=== PATIENT | female | born 1970 | race Caucasian/White ===

== ENCOUNTER → 2016-05-17 | Day surgery (SDC) | payer BC ==
[2016-05-16 11:30] VITALS: BMI 27.0
[~2016-05-17] VITALS: Ht 157.5 cm; Wt 68.2 kg
[~2016-05-17] MED LIST: ASPI81TA28 PO; ATOR10TA88 PO; CHOL1000 PO; CITA20TA4 PO; CLON1TAB3 PO; ENOX80IN SQ; HYDR-5688 PO; LIDOCAINE HCL 2% 2 ML VIAL (20MG/ML) ONE; ONDANSETRON INJ 2 MG/ML 2 ML VIAL IV PRN; PANT40TA PO; PROPOFOL IV EMULSION 10 MG/ML 20 ML VIAL IV ONE; ZNTT/150 PO
[2016-05-17 09:07] VITALS: Ht 157.5 cm; Wt 68.2 kg
[2016-05-17 09:26] VITALS: TEMP 36.7
--- NOTE | 2016-05-17 09:34 | GI REPORT ---
Procedure Date: 05/17/2016 9:07 AM Procedure: Upper GI endoscopy Indications: Acute post hemorrhagic anemia, Hematemesis, Nausea with vomiting Medicines: Monitored Anesthesia Care Complications: No immediate complications. Estimated blood loss: Minimal. Estimated Blood Loss: Estimated blood loss was minimal. Estimated blood loss: Minimal. Procedure: Pre-Anesthesia Assessment: - Prior to the procedure, a History and Physical was performed, and patient medications, allergies and sensitivities were reviewed. The patient's tolerance of previous anesthesia was reviewed. - The risks and benefits of the procedure and the sedation options and risks were discussed with the patient. All questions were answered and informed consent was obtained. - Patient identification and proposed procedure were verified prior to the procedure by the physician, the nurse and the marine insurance claim examiner. The procedure was verified in the procedure room. - Pre-procedure physical examination revealed no contraindications to sedation. - ASA Grade Assessment: III - A patient with severe systemic disease. - After reviewing the risks and benefits, the patient was deemed in satisfactory condition to undergo the procedure. - The anesthesia plan was to use monitored anesthesia care (MAC). - Immediately prior to administration of medications, the patient was re-assessed for adequacy to receive sedatives. - The heart rate, respiratory rate, oxygen saturations, blood pressure, adequacy of pulmonary ventilation, and response to care were monitored throughout the procedure. - The physical status of the patient was re-assessed after the procedure. After obtaining informed consent, the endoscope was passed under direct vision. Throughout the procedure, the patient's blood pressure, pulse, and oxygen saturations were monitored continuously. The On-site loaner was introduced through the mouth, and advanced to the third part of duodenum. The upper GI endoscopy was accomplished without difficulty. The patient tolerated the procedure well. Findings: No endoscopic abnormality was evident in the esophagus to explain the patient's complaint of dysphagia. It was decided, however, to proceed with dilation of the entire esophagus. A guidewire was placed and the scope was withdrawn. Dilation was performed with a Savary dilator with no resistance at 42 Fr, 45 Fr and 48 Fr. Estimated blood loss: none. The endoscope was then reinserted to evaluate the success of the procedure. The Z-line was regular and was found 35 cm from the incisors. Diffuse minimal inflammation characterized by granularity was found in the entire examined stomach. A scar was found in the gastric body. The scar tissue was healthy in appearance. The examined duodenum was normal. Impression: Normal esophagus Mild gastritis (not biopsied as patient on Lovenox) Recommendation: - Advance diet as tolerated today. - Observe patient's clinical course following today's procedure with therapeutic intervention. - Repeat the upper endoscopy PRN for retreatment. Le Nina D.O. Le Nina, DO 05/17/2016 9:33:53 AM This report has been signed electronically. Note Initiated On: 05/17/2016 9:07 AM I attest to the content of the Intraoperative Record and orders documented therein, exceptions below
--- NOTE | 2016-05-17 09:36 | Endo History and Physical ---
History & Physical Date of Service: May 17, 2016. Chief Complaint: DYSPHAGIA Referring Physician: DR. CHOI History of Present Illness Patient with a history of radiation therapy presenting for evaluation of dysphagia for 6 months (solids only). Past Surgical History Hx Cardiac Surgery: Yes (CARDIAC CATH) Hx Internal Defibrillator: No Hx Pacemaker: No Hx Abdominal Surgery: No Hx of Implantable Prosthesis: No Hx Post-Op Nausea and Vomiting: No Hx Cancer Surgery: No Hx Thoracic Surgery: No Hx Orthopedic: No Hx Urinary Tract Surgery: No Family History None Social History Smoking Status: Current Every Day Smoker Hx Substance Use: No Hx Alcohol Use: Yes Allergies Coded Allergies: No Known Allergies (Unverified , 05/17/16) Current Medications Reported Home Medications Medications Dose Route/Sig Max Daily Dose Days Date Category Dose Instructions Vitamin D3 (Cholecalciferol) 1,000 Unit Tab 1 Tab PO QAM 05/16/16 Reported [place] 5MG/325MG (Acetaminophen/Hydrocodone Bitart) Tab 1 Tablet PO Q4H PRN 05/16/16 Reported PRN PAIN Aspirin Ec (Aspirin) 81 Mg Tab 81 Mg PO QAM 05/16/16 Reported Klonopin (Clonazepam) 1 Mg Tab 1 Mg PO BID 05/16/16 Reported Protonix (Pantoprazole Sodium) 40 Mg Tab 40 Mg PO QAM 05/16/16 Reported Zantac (Ranitidine HCl) 150 Mg Tab 150 Mg PO QAM 05/16/16 Reported Citalopram Hydrobromide 20 Mg Tab 1 Tab PO QAM 05/16/16 Reported Lipitor (Atorvastatin Calcium) 10 Mg Tab 10 Mg PO QAM 05/16/16 Reported Lovenox (Enoxaparin Sodium) 80 Mg/0.8 Ml Inj 80 Mg SQ Q12H 05/16/16 Reported Vital Signs Weight (Kilograms): 68.18 Height (Feet): 5 Height (Inches): 2 Date Time Temp Pulse Resp B/P Pulse Ox O2 Delivery O2 Flow Rate FiO2 05/17/16 09:26 36.7 79 18 121/86 97 Room Air Physical Exam General Appearance: no apparent distress Respiratory/Chest: Auscultation: no wheezing, deminished air movement Cardiovascular: Heart Auscultation: RRR Abdomen: Inspection & Palpation: soft Assessment and Plan EGD for evaluation of dysphagia. Given history would wonder about a radiation induced stricture. We have discussed the risks to include bleeding, infection, perforation, pain, infection, and cardiopulmonary problems.
--- NOTE | 2016-05-17 09:59 | Discharge Instructions ---
Endoscopy Patient Instructions Date / Procedure(s) Performed May 17, 2016. EGD Allergy Information Coded Allergies: No Known Allergies (Unverified , 05/17/16) Discharge Date / Findings May 17, 2016. Mild gastritis No stricture or mass in the esophagus Medication Instructions Stopped Medication(s): PT. INSTRUCTED TO STOP TAKIN VITAMINS. Reported Home Medications Medications Dose Route/Sig Max Daily Dose Days Date Category Dose Instructions Vitamin D3 (Cholecalciferol) 1,000 Unit Tab 1 Tab PO QAM 05/16/16 Reported [place] 5MG/325MG (Acetaminophen/Hydrocodone Bitart) Tab 1 Tablet PO Q4H PRN 05/16/16 Reported PRN PAIN Aspirin Ec (Aspirin) 81 Mg Tab 81 Mg PO QAM 05/16/16 Reported Klonopin (Clonazepam) 1 Mg Tab 1 Mg PO BID 05/16/16 Reported Protonix (Pantoprazole Sodium) 40 Mg Tab 40 Mg PO QAM 05/16/16 Reported Zantac (Ranitidine HCl) 150 Mg Tab 150 Mg PO QAM 05/16/16 Reported Citalopram Hydrobromide 20 Mg Tab 1 Tab PO QAM 05/16/16 Reported Lipitor (Atorvastatin Calcium) 10 Mg Tab 10 Mg PO QAM 05/16/16 Reported Lovenox (Enoxaparin Sodium) 80 Mg/0.8 Ml Inj 80 Mg SQ Q12H 05/16/16 Reported Provider Instructions Activity Restrictions - No exercising or heavy lifting for 24 hours. - Do not drink alcohol the day of the procedure. - Do not drive a car or operate machinery until the day after the procedure. - Do not make any important decisions or sign important papers in 24 hours after the procedure. Following Day: - Return to full activity which may include returning to work/school. Diet Start your diet with liquids and light foods (jello, soup, juice, toast). Then eat your usual diet if not nauseated. Treatment For Common After Affects For mild abdominal pain, bloating, or excessive gas: - Rest - Eat lightly - Lie on right side Follow-Up Information Follow-up with DR. CHOI as scheduled Repeat upper endoscopy for further dilation if symptoms persist. Anesthesia Information What You Should Know You have had a procedure that required some medicine to reduce anxiety and discomfort. This treatment is called moderate sedation. After receiving the treatment, you may be sleepy, but you will be able to breathe on your own. The effects of the treatment may last for several hours. Follow these instructions along with Activity/Diet recommendations noted above: * Do NOT do anything where dizziness or clumsiness would be dangerous. * Rest quietly at home today, then you can be up and about tomorrow. * Have a responsible person stay with you the rest of today. * You may have had an I.V. today. If so, you may take the dressing off later today. Recommendations Call your doctor if: * Trouble breathing * Continuous vomiting for more than 24 hours * Temperature above 101 degrees * Severe abdominal pain or bloating * Pain not relieved by pain medicine ordered * There is increased drainage or redness from any incision * A large amount of rectal bleeding greater than 2-3 tablespoons. (If you had a polyp/s removed or have hemorrhoids, a small amount of blood - from the rectum is to be expected.) * You have any unanswered questions or concerns. IN THE EVENT OF A SERIOUS EMERGENCY, GO TO THE NEAREST EMERGENCY ROOM Your discharge instructions were prepared by provider Le Nina. Patient Instructions Signature Page Prisca Ricks Patient (or Guardian) Signature/Date: I have read and understand the instructions given to me by my caregivers. Caregiver/RN/Doctor Signature/Date: The above-named patient and/or guardian has received patient instructions on this date. + Original Patient Signature Page (only) stays with chart. Please make copy for patient.
[2016-05-17 10:15] VITALS: PULSE 75
[2016-05-17 10:38] VITALS: BP 127/79; O2SAT 96
--- NOTE | 2016-05-17 15:19 | Anesthesiology Progress Note ---
Anesthesia Post Op Note Date & Time May 17, 2016 at 15:19 Vital Signs Pain Intensity: 8 Vital Signs Past 12 Hours Date Time Temp Pulse Resp B/P Pulse Ox O2 Delivery O2 Flow Rate FiO2 05/17/16 10:38 20 127/79 96 Room Air 05/17/16 10:28 20 125/84 99 Room Air 05/17/16 10:15 75 20 109/74 97 Room Air 05/17/16 10:03 88 20 120/82 95 Room Air 05/17/16 09:26 36.7 79 18 121/86 97 Room Air Notes Mental Status: alert / awake / arousable, participated in evaluation Pt Amnestic to Procedure: Yes Nausea / Vomiting: adequately controlled Pain: adequately controlled Airway Patency, RR, SpO2: stable & adequate BP & HR: stable & adequate Hydration State: stable & adequate Anesthetic Complications: no major complications apparent
== END | disposition home or self-care (01) ==
LOC: C.GI 08:56 → MERGE 09:30
PROVIDERS: ATTEND Internal Medicine Gastroenterology
DX: R13.10 Dysphagia, unspecified (principal); D62 Acute posthemorrhagic anemia; K29.70 Gastritis, unspecified, without bleeding; K92.0 Hematemesis; F17.210 Nicotine dependence, cigarettes, uncomplicated; Z79.82 Long term (current) use of aspirin

== ENCOUNTER → 2016-10-24 | Day surgery (SDC) | payer BC ==
[~2016-10-24] VITALS: Ht 158.8 cm; Wt 60.0 kg
[~2016-10-24] MED LIST changes: +METOCLOPRAMIDE HCL INJ 5 MG/ML 2 ML VIAL ONE; +MIDAZOLAM HCL 1 MG/ML 2ML VIAL ONE; -ONDANSETRON INJ 2 MG/ML 2 ML VIAL IV PRN; +SODIUM CHLORIDE 0.9% 500ML 500 ML IV ONE
[2016-10-24 08:17] VITALS: Ht 158.8 cm; Wt 60.0 kg
--- NOTE | 2016-10-24 08:38 | Endo History and Physical ---
History & Physical Date of Service: Oct 24, 2016. Chief Complaint: Dysphagia Referring Physician: Dr. 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 Transient improvement after prior dilation. Recent barium swallow patient reports was negative. Past Surgical History Hx Cardiac Surgery: No Hx Internal Defibrillator: No Hx Pacemaker: No Hx Abdominal Surgery: No Hx of Implantable Prosthesis: No Hx Post-Op Nausea and Vomiting: No Hx Cancer Surgery: Yes Hx Thoracic Surgery: No Hx Orthopedic: No Hx Urinary Tract Surgery: No Family History None Social History Smoking Status: Current Every Day Smoker Hx Substance Use: Yes Hx Alcohol Use: No Allergies Coded Allergies: No Known Allergies (Verified , 10/24/16) Current Medications Reported Home Medications Medications Dose Route/Sig Max Daily Dose Days Date Category Dose Instructions [place] 5MG/325MG (Acetaminophen/Hydrocodone Bitart) Tab 1 Tablet PO Q4H PRN 05/16/16 Reported PRN PAIN Aspirin Ec (Aspirin) 81 Mg Tab 81 Mg PO QAM 05/16/16 Reported Klonopin (Clonazepam) 1 Mg Tab 1 Mg PO BID 05/16/16 Reported Protonix (Pantoprazole Sodium) 40 Mg Tab 40 Mg PO QAM 05/16/16 Reported Zantac (Ranitidine HCl) 150 Mg Tab 150 Mg PO QAM 05/16/16 Reported Citalopram Hydrobromide 20 Mg Tab 1 Tab PO QAM 05/16/16 Reported Lipitor (Atorvastatin Calcium) 10 Mg Tab 10 Mg PO QAM 05/16/16 Reported Lovenox (Enoxaparin Sodium) 80 Mg/0.8 Ml Inj 80 Mg SQ Q12H 05/16/16 Reported Vital Signs Weight (Kilograms): 60 Height (Feet): 5 Height (Inches): 2.5 Physical Exam General Appearance: WD/WN, no apparent distress Respiratory/Chest: Respiratory effort: no dyspnea Auscultation: no wheezing Cardiovascular: Heart Auscultation: RRR, no murmurs Abdomen: Inspection & Palpation: soft, no tenderness, guarding & rebound Assessment and Plan EGD with dilation today.
--- NOTE | 2016-10-24 09:16 | GI REPORT ---
Procedure Date: 10/24/2016 8:57 AM Procedure: Upper GI endoscopy Indications: Dysphagia Medicines: Propofol per Anesthesia Complications: No immediate complications. Estimated blood loss: None. Estimated Blood Loss: Estimated blood loss: none. Procedure: Pre-Anesthesia Assessment: - Prior to the procedure, a History and Physical was performed, and patient medications, allergies and sensitivities were reviewed. The patient's tolerance of previous anesthesia was reviewed. - ASA Grade Assessment: III - A patient with severe systemic disease. After obtaining informed consent, the endoscope was passed under direct vision. Throughout the procedure, the patient's blood pressure, pulse, and oxygen saturations were monitored continuously. The scope was introduced through the mouth, and advanced to the third part of duodenum. The upper GI endoscopy was accomplished with ease. The patient tolerated the procedure well. Findings: No endoscopic abnormality was evident in the esophagus to explain the patient's complaint of dysphagia. It was decided, however, to proceed with dilation of the entire esophagus. A guidewire was placed and the scope was withdrawn. Dilation was performed with a Savary dilator with no resistance at 18 mm and 20 mm. The upper third of the esophagus, middle third of the esophagus and lower third of the esophagus were normal. The Z-line was regular and was found 40 cm from the incisors. A small hiatus hernia was present. The stomach was normal. The examined duodenum was normal. Impression: - No endoscopic esophageal abnormality to explain patient's dysphagia. Esophagus dilated. Dilated to 20 mm. - Normal upper third of esophagus, middle third of esophagus and lower third of esophagus. - Z-line regular, 40 cm from the incisors. - Small hiatus hernia. - Normal stomach. - Normal examined duodenum. - No specimens collected. Recommendation: - If dysphagia persists, recommend video esophagram (modified barium swallow) with speech pathology. - Discharge patient to home (with escort). Victor Hugo Juan M.D. Victor Hugo Juan MD 10/24/2016 9:15:11 AM This report has been signed electronically. Note Initiated On: 10/24/2016 8:57 AM I attest to the content of the Intraoperative Record and orders documented therein, exceptions below
--- NOTE | 2016-10-24 09:26 | Discharge Instructions ---
Endoscopy Patient Instructions Date / Procedure(s) Performed Oct 24, 2016. EGD Allergy Information Coded Allergies: No Known Allergies (Verified , 10/24/16) Discharge Date / Findings Oct 24, 2016. Esophagus dilated to 20 mm (60 Fr) without mucosal tear. Small hiatal hernia. Medication Instructions Restart Stopped Medication(s): Restart all medications. Provider Instructions Activity Restrictions - No exercising or heavy lifting for 24 hours. - Do not drink alcohol the day of the procedure. - Do not drive a car or operate machinery until the day after the procedure. - Do not make any important decisions or sign important papers in 24 hours after the procedure. Following Day: - Return to full activity which may include returning to work/school. Diet Start your diet with liquids and light foods (jello, soup, juice, toast). Then eat your usual diet if not nauseated. Treatment For Common After Affects For mild abdominal pain, bloating, or excessive gas: - Rest - Eat lightly - Lie on right side Follow-Up Information Follow-up with Dr. Rivera as scheduled Anesthesia Information What You Should Know You have had a procedure that required some medicine to reduce anxiety and discomfort. This treatment is called moderate sedation. After receiving the treatment, you may be sleepy, but you will be able to breathe on your own. The effects of the treatment may last for several hours. Follow these instructions along with Activity/Diet recommendations noted above: * Do NOT do anything where dizziness or clumsiness would be dangerous. * Rest quietly at home today, then you can be up and about tomorrow. * Have a responsible person stay with you the rest of today. * You may have had an I.V. today. If so, you may take the dressing off later today. Recommendations Call your doctor if: * Trouble breathing * Continuous vomiting for more than 24 hours * Temperature above 101 degrees * Severe abdominal pain or bloating * Pain not relieved by pain medicine ordered * There is increased drainage or redness from any incision * A large amount of rectal bleeding greater than 2-3 tablespoons. (If you had a polyp/s removed or have hemorrhoids, a small amount of blood - from the rectum is to be expected.) * You have any unanswered questions or concerns. IN THE EVENT OF A SERIOUS EMERGENCY, GO TO THE NEAREST EMERGENCY ROOM Your discharge instructions were prepared by provider Victor Hugo Juan. Patient Instructions Signature Page Prisca Jozefik Patient (or Guardian) Signature/Date: I have read and understand the instructions given to me by my caregivers. Caregiver/RN/Doctor Signature/Date: The above-named patient and/or guardian has received patient instructions on this date. + Original Patient Signature Page (only) stays with chart. Please make copy for patient.
--- NOTE | 2016-10-24 09:46 | Anesthesiology Progress Note ---
Anesthesia Post Op Note Date & Time Oct 24, 2016 at 09:46 Vital Signs Pain Intensity: 0 Vital Signs Past 12 Hours Date Time Temp Pulse Resp B/P (MAP) Pulse Ox O2 Delivery O2 Flow Rate FiO2 10/24/16 09:30 73 20 144/90 (108) 100 Room Air 10/24/16 09:14 74 20 128/89 (102) 100 Room Air 10/24/16 08:40 36.7 75 16 137/99 (112) 100 Room Air Notes Mental Status: alert / awake / arousable, participated in evaluation Pt Amnestic to Procedure: Yes Nausea / Vomiting: adequately controlled Pain: adequately controlled Airway Patency, RR, SpO2: stable & adequate BP & HR: stable & adequate Hydration State: stable & adequate Anesthetic Complications: no major complications apparent
[2016-10-24 09:50] VITALS: BP 166/106; PULSE 73; O2SAT 100
== END | disposition home or self-care (01) ==
LOC: C.GI 07:57
PROVIDERS: ATTEND Internal Medicine Gastroenterology
DX: R13.10 Dysphagia, unspecified (principal); T45.1X5D Adverse effect of antineoplastic and immunosuppressive drugs, subsequent encounter; K44.9 Diaphragmatic hernia without obstruction or gangrene; Z85.810 Personal history of malignant neoplasm of tongue; F17.210 Nicotine dependence, cigarettes, uncomplicated; Z79.82 Long term (current) use of aspirin; Z79.899 Other long term (current) drug therapy